=== PATIENT | male | born 1980 | race Caucasian/White ===

== ENCOUNTER 2020-08-18 08:23 | Emergency (ER) | payer OTHER ==
[~2020-08-18] VITALS: Ht 175.3 cm; Wt 74.8 kg
[2020-08-18] MEDS ORDERED: Tenex1 MG PO ×2 (08:41→09:52)
[2020-08-18] MEDS ORDERED: Inderal60 MG PO (08:42)
[2020-08-18] MEDS ORDERED: DIVA125EC (08:42)
[2020-08-18] MEDS ORDERED: Inderal40 MG PO (09:23)
[2020-08-18] MEDS ORDERED: VALPROIC A250 MG/52 PO (09:25)
[2020-08-18] MEDS ORDERED: Depakene250 MG PO (09:52)
[2020-08-18] MEDS ORDERED: Inderal 20 mg T20 MG PO (09:52)
== END 2020-08-18 10:23 | disposition home or self-care (01) ==
LOC: ER 08:23
DX: M25.521 Pain in right elbow (principal); Z79.899 Other long term (current) drug therapy
CPT/HCPCS: 73080; 99283-25; A9270